=== PATIENT | female | born 1975 | race Caucasian/White ===

== ENCOUNTER 2017-09-11 05:52 | Inpatient (IN) | payer BC, MEDICAID ==
--- NOTE | 2017-09-10 09:15 | HP ---
DATE OF SERVICE: 09/11/2017 HISTORY OF PRESENT ILLNESS: This patient is a very pleasant, 41-year-old, 3, para 1, AB1 patient who is now at term. Her early OB ultrasound does give her an REJI of 09/18/2017, and she would currently be at 39 weeks' gestation. This does correspond very closely with her LMP of 12/13/2016. Her course has been quite uncomplicated. Please see the EHR as it pertains to all of her laboratory data. PAST OBSTETRICAL HISTORY: She did have a primary section by Dr. Holman in 05/2010, and this was for failure to progress in labor. She denies any knowledge of intraoperative or postoperative complications after that. She has chosen to have a repeat section and not have a vaginal trial of labor in [place]. PAST MEDICAL HISTORY: She denies any knowledge of heart, lung, liver, or kidney disease. ALLERGIES: None known, although she does have some intolerance to aspirin at times. Apparently, this was mild GI upset. MEDICATIONS: Medications at present: 1. vitamins. 2. Vitamin D3. PAST SURGICAL HISTORY: Previous surgery: She has had LEEP procedure in [place] about 4 years ago for her abnormal Pap smears which have subsequently become normal again. She also has had the prior section by Dr. Holman. SOCIAL HISTORY: She does live in the [facility] and does not have insurance and has been trying to be as cost-effective as possible regarding her care costs, etc. The patient is a nonsmoker and does not use alcohol. She is and does have a 7-year-old girl named Shira. FAMILY HISTORY: She is not aware of any breast cancer or other gynecologic malignancies in the family history. Denies any knowledge of genetic problems in the family history also. PHYSICAL EXAMINATION: Vital Signs: Pulse 70, blood pressure 118/68. HEENT: Negative. There is no thyromegaly. Lungs: Clear to A. Heart: Regular rhythm without murmur. Breast: Exam on first visit was negative for masses. Abdomen: Gravid with fundal height 37 cm. heart tones are present at 146. The vertex appears to be the presenting part. The patient was breech on early ultrasound also closer to 20 weeks' gestation. There is a 10% chance she could be breech presentation today, but 90% chance I believe she is vertex. We will be repeating the cervical exam on the morning of 09/11/2017. Extremities: Negative. Neurologic: Grossly intact. IMPRESSION: A 41-year-old, 3, para 1, AB1 patient at term or 39 weeks' gestation with history of one prior section. Also, there is the slight 10% chance of breech presentation today, and we will be repeating the cervical exam tomorrow morning on 09/11/2017 as mentioned above. We will be proceeding with repeat section. We did thoroughly discuss the goals of this operative procedure as well as the slight possibility of adverse outcome, complications, etc. All of her questions have been answered thoroughly. She does wish to proceed with repeat section. She also had depression with her first , but she tells me she thinks that was related to the passing away of her mom for some degree of situational depression at that time. She will keep in close contact with us postoperatively if any depressive issues do occur. Please see our preoperative orders. [facility] /[id number]
[2017-09-11] MEDS: Lactated Ringers 1,000 ML IV SCH ×3 (06:15→11:24)
[2017-09-11] MEDS ORDERED: Oxytocin/Normal Saline 60 UNIT/1,000 ML BAG ONE (07:01)
[2017-09-11] MEDS ORDERED: Bupivacaine 0.25%/EPINEPHrine 1:200,000 30 ML SDV ONE (07:03)
[2017-09-11] MEDS ORDERED: Bupivacaine 0.25% 10 ML SDV ONE (07:17)
[2017-09-11] MEDS ORDERED: ceFAZolin 2 GM in Premix Bag 1 BAG IV ONE (07:30)
[2017-09-11] MEDS ORDERED: Bupivacaine 0.25% 10 ML SDV INJECT ONE (08:28)
[2017-09-11] MEDS ORDERED: Oxytocin/Normal Saline 30 UNIT/500 ML BAG IV SCH ×2 (09:00→11:30)
[2017-09-11] MEDS ORDERED: Misoprostol 400 MCG (4 X 100 MCG TAB) RECTAL PRN (10:30)
[2017-09-11] MEDS ORDERED: Lactated Ringers 1,000 ML IV SCH (10:30)
[2017-09-11] MEDS ORDERED: Naloxone 2 MG/2 ML Syringe IVPUSH PRN (10:30)
[2017-09-11] MEDS ORDERED: Tranexamic Acid 1,000 MG in Sodium Chloride 0.9% 100 ML IV PRN (10:30)
[2017-09-11] MEDS ORDERED: Ondansetron 4 MG/2 ML SDV IV PRN (10:30)
[2017-09-11] MEDS ORDERED: diphenhydrAMINE 50 MG/ML SDV IVPUSH PRN (10:30)
[2017-09-11] MEDS ORDERED: Acetaminophen 325 MG Tab PO PRN (10:30)
[2017-09-11] MEDS ORDERED: ePHEDrine 50 MG/ML SDV IVPUSH PRN (10:30)
[2017-09-11] MEDS ORDERED: Carboprost Tromethamine 250 MCG/1 ML Amp IM ONE (10:30)
[2017-09-11] MEDS ORDERED: Methylergonovine 0.2 MG/1 ML Amp IM PRN (10:30)
--- NOTE | 2017-09-11 11:56 | OR ---
DATE: 09/11/2017 PREOPERATIVE DIAGNOSES: 1. at 39 weeks gestation with history of previous section. 2. Advanced maternal age. 3. Positive for group B strep colonization of genital tract. POSTOPERATIVE DIAGNOSES: 1. at 39 weeks gestation with history of previous section. 2. Advanced maternal age. 3. Positive for group B strep colonization of genital tract. OPERATION PERFORMED: Repeat section, low transverse. COMPLICATIONS: None. ESTIMATED BLOOD LOSS: 500 mL. ANESTHESIA: Spinal anesthesia. GINS[employer] FARMER SURGEON: Dereje Anthony MD. DESCRIPTION OF OPERATION: After the induction of satisfactory regional or spinal anesthesia and after the abdomen had been routinely prepped and draped in the usual fashion, a repeat Pfannenstiel incision was now made in the skin. This was carried down through the deeper layers with the clean knife and the peritoneum was now carefully entered in the usual fashion. The bladder flap was carefully developed with the use of sharp and blunt dissection. The bladder was somewhat higher on the lower uterine segment, so extra caution was taken when reflecting the bladder inferiorly. Now, a low transverse uterine incision was made and the uterus was somewhat thin and attenuated, especially on the left side of the lower uterine segment. Now, the bandage scissors was used bilaterally and clear amniotic fluid, and in fact, a large amount of clear amniotic fluid was evident. Amniotic fluid was clear as mentioned. Now, a baby girl was delivered from the vertex presentation and thoroughly suctioned upon delivery. The infant was passed off to the pediatric crew and the weight was later reported as 7 pounds and the scores were later reported as 8 and 8. As mentioned above, this was a viable female. A sample of cord blood was obtained. The placenta was manually delivered from the uterine cavity and the uterine cavity was now carefully wiped clean with a moist laparotomy sponge. The first layer of the uterus was closed with 0 Vicryl continuous interlocking sutures. A second Lembert imbricating layer was placed on top of this. As mentioned above, the lower uterine segment, especially on the left side is somewhat attenuated and thin and extra caution had to be taken to make sure that the edges were brought together as best as possible. There was a slight to moderate amount of oozing from the uterine incision at times and 2 more interrupted sutures were placed to give hemostasis. The bladder flap approximates nicely on its own without suturing. The pelvic gutters were copiously irrigated with normal saline and carefully suctioned dry. The tubes and ovaries and uterus, otherwise, had a normal appearance other than what I have described as above. After the primary closure of the uterine incision was done, we did closely reinspect the uterine incision and this remains hemostatic. Now, the peritoneum in conjunction with the rectus abdominis muscles were closely reapproximated with 3 interrupted sutures of 3-0 plain gut. Now, the rectus fascia was closed using 0 Vicryl continuous interlocking sutures and using a separate strand for the right and left sides of the incision respectively. Subcutaneous tissue was irrigated with normal saline and carefully suctioned dry. Several small bleeders were electrocoagulated. Now for extra analgesic support, 10 mL of 0.25% Marcaine were infiltrated into the subcutaneous tissues. [place] were now applied to the skin. A sterile dressing was now applied. The Garcia catheter was draining clear urine at all times. The needle, sponge, and instrument count was reported as correct. The patient has tolerated procedure well and went to the recovery room in stable condition. The patient did receive 2 g of Ancef preoperatively today. SCDs were also deployed during the case. As mentioned above, the estimated blood loss is approximately 500 mL. [facility] /[id number]
[2017-09-11] MEDS: Simethicone 80 MG Tab.Chew PO SCH ×3 (13:24→21:14)
[2017-09-11] MEDS ORDERED: ePHEDrine 50 MG/ML SDV IV ONE (14:04)
[2017-09-11] MEDS ORDERED: Ketorolac 30 MG/ML SDV IVPUSH ONE (14:04)
[2017-09-11] MEDS ORDERED: Propofol 200 MG/20 ML SDV IV ONE (14:04)
[2017-09-11] MEDS ORDERED: fentaNYL 100 MCG/2 ML SDV IV ONE (14:04)
[2017-09-11] MEDS ORDERED: Lactated Ringers 1,000 ML IV ONE (14:04)
[2017-09-11] MEDS ORDERED: Ondansetron 4 MG/2 ML SDV IV ONE (14:04)
[2017-09-11] MEDS ORDERED: Dexamethasone 4 MG/ML SDV IV ONE (14:04)
[2017-09-11] MEDS: Ketorolac 30 MG/ML SDV IVPUSH SCH ×2 (15:17→21:14)
[2017-09-11] MEDS: Acetaminophen/oxyCODONE 325-5 MG Tab PO PRN (21:59)
[2017-09-12] MEDS: Ketorolac 30 MG/ML SDV IVPUSH SCH (03:05)
[2017-09-12] MEDS: Acetaminophen/oxyCODONE 325-5 MG Tab PO PRN ×3 (09:03→20:08)
[2017-09-12] MEDS: Prenatal Multivitamin with Calcium/Folic Acid/Iron Tab PO SCH (09:03)
[2017-09-12] MEDS: Simethicone 80 MG Tab.Chew PO SCH ×4 (09:03→20:07)
[2017-09-12] MEDS: Docusate Sodium 100 MG Cap PO PRN ×2 (09:03→20:07)
[2017-09-12] MEDS: Ibuprofen 800 MG Tab PO PRN ×2 (12:40→20:08)
[2017-09-13] MEDS: Acetaminophen/oxyCODONE 325-5 MG Tab PO PRN ×5 (00:46→21:48)
[2017-09-13] MEDS: Ibuprofen 800 MG Tab PO PRN ×3 (04:12→21:49)
[2017-09-13] MEDS: Simethicone 80 MG Tab.Chew PO SCH ×4 (08:55→21:49)
[2017-09-13] MEDS: Docusate Sodium 100 MG Cap PO PRN ×2 (08:55→21:49)
[2017-09-13] MEDS: Prenatal Multivitamin with Calcium/Folic Acid/Iron Tab PO SCH (08:55)
--- NOTE | 2017-09-13 10:49 | PN ---
DATE: 09/13/2017 SUBJECTIVE: Postoperative day #2 after a repeat section. The patient has been doing well, ambulating, tolerating regular diet, passing flatus, has not yet had a bowel movement, voiding without difficulties. No chest pain or shortness of breath. No nausea or vomiting. The pain has been well-controlled. Depression symptoms have improved a little bit since yesterday and patient is coping better today. Happy to hear that her baby is doing well and looking forward to discharge tomorrow. OBJECTIVE: Vital Signs: Temperature is 97.8, pulse 75, blood pressure 120/73, respiratory rate of 18, O2 saturations 99% on room air. Heart: Regular without obvious murmur. Lungs: Clear to auscultation bilaterally. Abdomen: Soft and nontender. Mild distention noted. Hypoactive bowel sounds are present. Incision is clean, dry, and intact with owen in place being left open to air. Extremities: Trace edema bilaterally. No erythema or tenderness noted. LABORATORY DATA: Admission hemoglobin 13.5, yesterday's hemoglobin 10.6. ASSESSMENT: 1. Postoperative day #2, status post repeat section, doing well. 2. Anemia of acute blood loss. 3. 3, now para 2-0-1-2. PLAN: Continue routine postoperative and cares. Anticipating discharge home tomorrow. Continue to monitor closely for signs or symptoms of depression that would require any sort of medication or additional counseling. The patient's questions have been answered. [facility] /[id number]
[2017-09-14] MEDS: Acetaminophen/oxyCODONE 325-5 MG Tab PO PRN ×3 (01:41→10:46)
[2017-09-14] MEDS: Ibuprofen 800 MG Tab PO PRN (06:03)
[2017-09-14] MEDS: Docusate Sodium 100 MG Cap PO PRN (08:29)
[2017-09-14] MEDS: Simethicone 80 MG Tab.Chew PO SCH ×2 (08:29→16:12)
[2017-09-14] MEDS: Prenatal Multivitamin with Calcium/Folic Acid/Iron Tab PO SCH (08:29)
--- NOTE | 2017-09-14 10:27 | DISCH ---
ADMITTING DIAGNOSES: 1. A 39 weeks' gestation by 9-week ultrasound. 2. 2, para 1-0-0-1. 3. Advanced maternal age. 4. History of one section. 5. History of depression. 6. Blood type O positive, rubella immune, and group B Strep positive. 7. Carpal tunnel syndrome. 8. Gastroesophageal reflux disease. DISCHARGE DIAGNOSES: 1. A 39 weeks' gestation by 9-week ultrasound. 2. 2, now para 2-0-0-2. 3. Advanced maternal age. 4. History of section x2. 5. History of depression. 6. Blood type O positive, rubella immune, and group B Strep positive. 7. Carpal tunnel syndrome. 8. Gastroesophageal reflux disease. 9. Anemia of blood loss. BRIEF HISTORY: A 41-year-old female admitted to the hospital for elective planned repeat section at term. This was carried out by Dr. Deal and Dr. Anthony without any complications, and she has been doing well from the recovery standpoint. See his history and physical for full details. HOSPITAL COURSE: Overall good. Postoperative day #1, the patient doing well, ambulating, tolerating regular diet, voiding without difficulties. By post op day #2 had a small bowel movement and continue to do well. She is passing flatus. No chest pain or shortness of breath. No symptoms of preeclampsia. Vaginal bleeding has been minimal. She is bottle feeding her baby. We had a long discussion on day #1 about history of depression which was also correlated with the of her mother within 2 weeks of delivery and 2 years later her father as well. She admits to being quite close to her parents and is fearful that she is going to have recurrent depression, agrees with not being medicated at this time and is agreeable to monitoring for symptoms and alerting us if any problems arise, and we would get her in for treatment as soon as possible. Dr. Deal is also aware of these concerns. DISCHARGE CONDITION: Good. PHYSICAL EXAMINATION: Vital Signs: Current vitals, temperature is 98.0, pulse 76, blood pressure 129/71, respiratory rate of 16, O2 saturations 99% on room air. Heart: Regular without obvious murmur. Lungs: Clear to auscultation bilaterally with good chest expansion. Abdomen: Soft, mildly distended. Positive bowel sounds throughout. Incision site is clean, dry, and intact with owen in place. Extremities: 2+ pitting edema bilaterally. No erythema or tenderness noted. LABORATORY DATA: Admission hemoglobin 13.5, postop day #1 was 10.6. Discharge hemoglobin is currently pending. Last platelets stable at 221. DISPOSITION: Home with family. MEDICATIONS: 1. Percocet 5/325 one to two tablets every 4-6 hours as needed for pain, dispense 30, no refills. 2. Ibuprofen 600 mg every 6 hours as needed for pain. 3. Colace 100 mg twice daily as needed for constipation. 4. Iron 325 mg twice daily for 1 month. FOLLOWUP: She will have an appointment to see Dr. Deal on Saturday for postoperative check and staple removal. Anticipate that either one of us will be seeing her for her 6 week exam. INSTRUCTIONS: Routine post section instructions were provided. Special attention to monitoring for any signs and symptoms of depression will be managed. She verbalizes understanding and all of her questions were answered. [facility] /[id number]
== END 2017-09-14 12:45 | disposition home or self-care (01) | DRG 765 ==
LOC: DL.MS 05:52 → MERGE 08:00 → OBSVTOIN 08:14 → DL.MS 08:14
PROVIDERS: ADMIT Obstetrics & Gynecology; ATTEND Obstetrics & Gynecology
PROC: 10D00Z1 Extraction of Products of Conception, Low, Open Approach (ICD-10-PCS; principal; 2017-09-11)
PROC: 6A550ZT Pheresis of Cord Blood Stem Cells, Single (ICD-10-PCS; 2017-09-11)
DX: O34.211 Maternal care for low transverse scar from previous cesarean delivery (principal); D62 Acute posthemorrhagic anemia; N85.8 Other specified noninflammatory disorders of uterus; Z3A.39 39 weeks gestation of pregnancy; Z37.0 Single live birth; O99.824 Streptococcus B carrier state complicating childbirth; O90.81 Anemia of the puerperium
CPT/HCPCS: 01961; 36415; 81003; 85018; 85027; 86850; 86900; 86901; 94010; A9270-GY; J0690; J1100; J1885; J2405; J2590; J2704; J3010; J7120